=== PATIENT | male | born 1970 | race Caucasian/White ===

== ENCOUNTER 2022-06-28 22:35 | Emergency (ER) | payer MEDICAID ==
[~2022-06-28] VITALS: Ht 185.4 cm; Wt 95.3 kg
[2022-06-28] MEDS ORDERED: FLUORESCEIN SODIUM OPHTH 1 EA STRIP ONE (23:51)
--- NOTE | 2022-06-29 00:02 | NUR ---
DR. LAW WILSON AT PT'S BEDSIDE FOR EVAL
[2022-06-29] MEDS ORDERED: CIPR2.5D14 LEFTEYE (00:07)
[2022-06-29 01:42] VITALS: BP 118/77
--- NOTE | 2022-06-29 01:43 | NUR ---
Patient discharged to home in stable condition. Written and verbal after care instructions given. Patient verbalizes understanding of instruction.
== END 2022-06-29 01:43 | disposition home or self-care (01) ==
LOC: ER 22:44
DX: H16.002 Unspecified corneal ulcer, left eye (principal); I10 Essential (primary) hypertension

== ENCOUNTER 2023-12-24 07:39 | Emergency (ER) | payer MEDICAID ==
[~2023-12-24] VITALS: Ht 182.9 cm; Wt 99.8 kg
[~2023-12-24 07:39] MED LIST: CIPR2.5D14 LEFTEYE
[2023-12-24] MEDS ORDERED: KETOROLAC TROMETHAMINE 15 MG/ML VIAL ONE (08:07)
[2023-12-24] MEDS: KETOROLAC TROMETHAMINE 15 MG/ML VIAL IV ONE (08:08)
[2023-12-24 08:23] LABS: BASOPHILS # (AUTO) 0.1 K/uL (0.0-0.2); BASOPHILS % (AUTO) 1.4 % (0.0-2.0); EOSINOPHILS # (AUTO) 0.2 K/uL (0.0-0.7); EOSINOPHILS % (AUTO) 2.2 % (0.0-6.0); HEMATOCRIT 45 % (39-51); HEMOGLOBIN 15.6 g/dL (13.5-17.5); LYMPHOCYTES # (AUTO) 2.1 K/uL (0.8-4.8); LYMPHOCYTES % (AUTO) 19.5 % (20.0-44.0); MEAN CORPUSCULAR HEMOGLOBIN 30 PG (26.0-33.0); MEAN CORPUSCULAR HGB CONC 35 g/dl (31.0-36.0); MEAN CORPUSCULAR VOLUME 86 fL (80-96); MONOCYTES # (AUTO) 0.8 K/uL (0.1-1.30); MONOCYTES % (AUTO) 7.7 % (2.0-12.0); NEUTROPHILS # (AUTO) 7.4 K/uL (1.8-8.9); NEUTROPHILS % (AUTO) 69.2 % (43.0-81.0); PLATELET COUNT (AUTO) 226 K/uL (150-450); RED BLOOD CELL COUNT(AUTO) 5.21 MIL/uL (4.5-6.0); RED CELL DISTRIBUTION WIDTH 12.9 % (11.5-15.0); WHITE BLOOD COUNT (AUTO) 10.7 K/uL (4.3-11.0)
[2023-12-24 08:27] LABS: URIC ACID 9.4 mg/dL (2.6-7.2)
[2023-12-24 08:31] LABS: ALBUMIN 3.5 g/dL (3.4-5.0); BILIRUBIN,TOTAL 0.5 mg/dL (0.2-1.0); CALCIUM, SERUM 8.9 mg/dL (8.5-10.1); POTASSIUM 3.6 mmol/L (3.5-5.1); TOTAL PROTEIN, SERUM 7.7 g/dL (6.4-8.2)
[2023-12-24 08:34] LABS: ERYTHROCYTE SEDIMENTATION RATE 19 MM/HR (0-20)
[2023-12-24] MEDS ORDERED: INDO50CA92 PO (09:11)
[2023-12-24 10:00] VITALS: BP 150/90; TEMP 98.8; O2SAT 99
== END 2023-12-24 10:01 | disposition home or self-care (01) ==
LOC: ER 07:44
DX: M10.9 Gout, unspecified (principal); I10 Essential (primary) hypertension; Z79.899 Other long term (current) drug therapy
CPT/HCPCS: 99284; 96374; 73660; 85025; 85652; 84550; 36415; 80053; 86140; J1885

== ENCOUNTER 2024-01-23 08:15 | Emergency (ER) | payer MEDICAID ==
[~2024-01-23] VITALS: Ht 160 cm; Wt 99.8 kg
[~2024-01-23 08:15] MED LIST changes: +INDO50CA92 PO
[2024-01-23 08:24] VITALS: BP 139/88; TEMP 98.2; O2SAT 100
[2024-01-23] MEDS ORDERED: TOBR5DRO48 LEFTEYE (09:01)
[2024-01-23] MEDS ORDERED: INDO50CA92 PO (09:01)
--- NOTE | 2024-01-23 09:13 | NUR ---
Patient discharged to home in stable condition. Written and verbal after care instructions given. Patient verbalizes understanding of instruction.
== END 2024-01-23 09:14 | disposition home or self-care (01) ==
LOC: ER 08:18
DX: H16.002 Unspecified corneal ulcer, left eye (principal); I10 Essential (primary) hypertension; Z79.899 Other long term (current) drug therapy